=== PATIENT | male | born 1960 | race African-American/Black ===

== ENCOUNTER 2021-07-27 10:58 | Emergency (ER) | payer SELFPAY ==
[~2021-07-27] VITALS: Ht 180.3 cm; Wt 75.0 kg
[2021-07-27 11:00] VITALS: BP 152/95
== END 2021-07-27 11:13 | disposition left against medical advice (07) ==
LOC: EMS 11:13
DX: R21 Rash and other nonspecific skin eruption (principal); Z53.21 Procedure and treatment not carried out due to patient leaving prior to being seen by health care provider